=== PATIENT | male | born 1985 | race African-American/Black ===

== ENCOUNTER 2022-07-06 16:44 | Inpatient (IN) | payer OTHER ==
[2022-07-06 18:09] VITALS: BMI 23.0
[2022-07-06] MEDS ORDERED: ACETAMINOPHEN 325 MG TABLET (FP) PO PRN (20:47)
[2022-07-06] MEDS ORDERED: LOPERAMIDE HCL 2 MG CAPSULE PO PRN (20:47)
[2022-07-06] MEDS ORDERED: MAGNESIUM HYDROX 2400MG/30ML ORAL SUSPENSION 30 ML CUP PO PRN (20:47)
[2022-07-06] MEDS ORDERED: IBUPROFEN 400 MG TABLET (FP) PO PRN (20:47)
[2022-07-06] MEDS ORDERED: MAG HYDROX/AL HYDROX/SIMETH 30 ML UNIT-DOSE CUP PO PRN (20:47)
[2022-07-06] MEDS ORDERED: MAGNESIUM CITRATE 300 ML BOTTLE PO PRN (20:47)
[2022-07-06] MEDS ORDERED: P-EPHED 60MG/TRIPROLIDI 2.5MG TABLET PO PRN (20:47)
[2022-07-06] MEDS ORDERED: guaiFENesin 200 MG/10 ML 10 ML UNIT-DOSE CUPS PO PRN (20:47)
[2022-07-06] MEDS: MELATONIN 5 MG TABLETS PO PRN (23:42)
[2022-07-06] MEDS: THIAMINE HCL 100 MG TABLET (FP) PO SCH (23:42)
[2022-07-07] MEDS: NICOTINE 10 MG CARTRIDGE (INHALER) IH PRN (08:38)
[2022-07-07] MEDS ORDERED: methaDONE HCL 10 MG TABLET PO SCH (09:15)
[2022-07-07] MEDS: methaDONE 40 MG, methaDONE 30 MG PO SCH (09:30)
[2022-07-07] MEDS: PRENATAL VITAMINS W/ FOLIC ACID TABLET (FP) PO SCH (09:31)
[2022-07-07 10:13] LABS: URINE APPEARANCE CLEAR; URINE BILIRUBIN NEGATIVE (NEGATIVE); URINE COLOR YELLOW; URINE GLUCOSE (UA) NEGATIVE (NEGATIVE); URINE KETONE NEGATIVE (NEGATIVE); URINE LEUK ESTERASE NEGATIVE (NEGATIVE); URINE NITRITE NEGATIVE (NEGATIVE); URINE PROTEIN NEGATIVE (NEGATIVE); URINE UROBILINOGEN 0.2 mg/dL (0.2-1.0)
[2022-07-07] MEDS: MELATONIN 5 MG TABLETS PO PRN (21:05)
[2022-07-07] MEDS: THIAMINE HCL 100 MG TABLET (FP) PO SCH (21:05)
[2022-07-07] MEDS: diphenhydrAMINE HCL 25 MG CAPSULE (FP) PO SCH (21:06)
[2022-07-08] MEDS: methaDONE 40 MG, methaDONE 30 MG PO SCH (06:04)
[2022-07-08] MEDS: NICOTINE 10 MG CARTRIDGE (INHALER) IH PRN ×4 (06:05→21:14)
[2022-07-08] MEDS: PRENATAL VITAMINS W/ FOLIC ACID TABLET (FP) PO SCH (09:41)
[2022-07-08 12:22] LABS: HEMATOCRIT 44.6 % (35.4-49); HEMOGLOBIN 14.7 GM/dL (11.7-16.9); MCH 30.3 pg (25.7-33.7); MCHC 33.1 g/dl (32.0-35.9); MEAN CELL VOLUME 91.7 fl (80-96); MEAN PLT VOLUME 10.2 fl (7.5-11.1); PLATELET COUNT 266 10^3/uL (134-434); RBC 4.86 M/mm3 (4.00-5.60); RDW 14.1 % (11.9-15.9); WHITE BLOOD COUNT 9.9 K/mm3 (4.0-10.0)
[2022-07-08 12:49] LABS: ALBUMIN 3.9 g/dl (3.4-5.0); BLOOD UREA NITROGEN 8.5 mg/dL (7-18); CALCIUM 9.4 mg/dL (8.5-10.1)
[2022-07-08 12:52] LABS: CREATININE 0.9 mg/dL (0.55-1.3)
[2022-07-08 12:53] LABS: BILIRUBIN,TOTAL 0.6 mg/dL (0.2-1)
[2022-07-08 12:54] LABS: TOT PROT 6.6 g/dl (6.4-8.2)
[2022-07-08] MEDS: diphenhydrAMINE HCL 25 MG CAPSULE (FP) PO SCH (21:14)
[2022-07-08] MEDS: THIAMINE HCL 100 MG TABLET (FP) PO SCH (21:14)
[2022-07-08] MEDS: MELATONIN 5 MG TABLETS PO PRN (21:14)
[2022-07-09] MEDS: methaDONE 40 MG, methaDONE 30 MG PO SCH (06:17)
[2022-07-09] MEDS: PRENATAL VITAMINS W/ FOLIC ACID TABLET (FP) PO SCH (09:38)
[2022-07-09] MEDS: NICOTINE 10 MG CARTRIDGE (INHALER) IH PRN ×3 (09:38→21:39)
[2022-07-09] MEDS: THIAMINE HCL 100 MG TABLET (FP) PO SCH (21:38)
[2022-07-09] MEDS: MELATONIN 5 MG TABLETS PO PRN (21:38)
[2022-07-09] MEDS: diphenhydrAMINE HCL 25 MG CAPSULE (FP) PO SCH (21:39)
[2022-07-10] MEDS: methaDONE 40 MG, methaDONE 30 MG PO SCH (06:17)
[2022-07-10] MEDS: PRENATAL VITAMINS W/ FOLIC ACID TABLET (FP) PO SCH (09:51)
[2022-07-10] MEDS: NICOTINE 10 MG CARTRIDGE (INHALER) IH PRN ×3 (09:52→21:43)
[2022-07-10] MEDS: diphenhydrAMINE HCL 25 MG CAPSULE (FP) PO SCH (21:42)
[2022-07-10] MEDS: THIAMINE HCL 100 MG TABLET (FP) PO SCH (21:42)
[2022-07-10] MEDS: MELATONIN 5 MG TABLETS PO PRN (21:42)
[2022-07-11] MEDS: methaDONE 40 MG, methaDONE 30 MG PO SCH (06:30)
[2022-07-11] MEDS: NICOTINE 10 MG CARTRIDGE (INHALER) IH PRN ×2 (06:30→09:55)
[2022-07-11] MEDS: PRENATAL VITAMINS W/ FOLIC ACID TABLET (FP) PO SCH (09:55)
[2022-07-11] MEDS: MELATONIN 5 MG TABLETS PO PRN (21:07)
[2022-07-11] MEDS: THIAMINE HCL 100 MG TABLET (FP) PO SCH (21:07)
[2022-07-11] MEDS: diphenhydrAMINE HCL 25 MG CAPSULE (FP) PO SCH (21:08)
[2022-07-12] MEDS: methaDONE 40 MG, methaDONE 30 MG PO SCH (06:10)
[2022-07-12] MEDS: NICOTINE 10 MG CARTRIDGE (INHALER) IH PRN (07:29)
[2022-07-12] MEDS: PRENATAL VITAMINS W/ FOLIC ACID TABLET (FP) PO SCH (10:06)
[2022-07-12] MEDS: THIAMINE HCL 100 MG TABLET (FP) PO SCH (21:14)
[2022-07-12] MEDS: MELATONIN 5 MG TABLETS PO PRN (21:14)
[2022-07-12] MEDS: diphenhydrAMINE HCL 25 MG CAPSULE (FP) PO SCH (21:15)
[2022-07-13] MEDS: methaDONE 40 MG, methaDONE 30 MG PO SCH (06:13)
[2022-07-13] MEDS: PRENATAL VITAMINS W/ FOLIC ACID TABLET (FP) PO SCH (09:46)
[2022-07-13] MEDS: NICOTINE 10 MG CARTRIDGE (INHALER) IH PRN ×2 (09:46→15:49)
[2022-07-13] MEDS: MELATONIN 5 MG TABLETS PO PRN (21:18)
[2022-07-13] MEDS: THIAMINE HCL 100 MG TABLET (FP) PO SCH (21:18)
[2022-07-13] MEDS: diphenhydrAMINE HCL 25 MG CAPSULE (FP) PO SCH (21:19)
[2022-07-14] MEDS: methaDONE 40 MG, methaDONE 30 MG PO SCH (06:19)
[2022-07-14] MEDS: NICOTINE 10 MG CARTRIDGE (INHALER) IH PRN ×3 (06:20→18:39)
[2022-07-14] MEDS: PRENATAL VITAMINS W/ FOLIC ACID TABLET (FP) PO SCH (10:00)
[2022-07-14] MEDS: MELATONIN 5 MG TABLETS PO PRN (21:31)
[2022-07-14] MEDS: THIAMINE HCL 100 MG TABLET (FP) PO SCH (21:31)
[2022-07-14] MEDS: diphenhydrAMINE HCL 25 MG CAPSULE (FP) PO SCH (21:31)
[2022-07-15] MEDS: methaDONE 40 MG, methaDONE 30 MG PO SCH (06:06)
[2022-07-15] MEDS: NICOTINE 10 MG CARTRIDGE (INHALER) IH PRN ×3 (06:08→21:37)
[2022-07-15] MEDS: PRENATAL VITAMINS W/ FOLIC ACID TABLET (FP) PO SCH (10:05)
[2022-07-15] MEDS: diphenhydrAMINE HCL 25 MG CAPSULE (FP) PO SCH (21:37)
[2022-07-15] MEDS: THIAMINE HCL 100 MG TABLET (FP) PO SCH (21:37)
[2022-07-15] MEDS: MELATONIN 5 MG TABLETS PO PRN (21:37)
[2022-07-16] MEDS: NICOTINE 10 MG CARTRIDGE (INHALER) IH PRN ×4 (06:18→21:05)
[2022-07-16] MEDS: methaDONE 40 MG, methaDONE 30 MG PO SCH (06:18)
[2022-07-16] MEDS: PRENATAL VITAMINS W/ FOLIC ACID TABLET (FP) PO SCH (09:21)
[2022-07-16] MEDS ORDERED: FLU VACC QS2022-23(6MOS UP)/PF 60 MCG/0.5 ML SYRINGE IM ONE (12:00)
[2022-07-16] MEDS: THIAMINE HCL 100 MG TABLET (FP) PO SCH (21:06)
[2022-07-16] MEDS: MELATONIN 5 MG TABLETS PO PRN (21:06)
[2022-07-16] MEDS: diphenhydrAMINE HCL 25 MG CAPSULE (FP) PO SCH (21:06)
[2022-07-17] MEDS: methaDONE 40 MG, methaDONE 30 MG PO SCH (06:08)
[2022-07-17] MEDS: NICOTINE 10 MG CARTRIDGE (INHALER) IH PRN ×4 (06:09→21:20)
[2022-07-17] MEDS: PRENATAL VITAMINS W/ FOLIC ACID TABLET (FP) PO SCH (10:16)
[2022-07-17] MEDS: diphenhydrAMINE HCL 25 MG CAPSULE (FP) PO SCH (21:19)
[2022-07-17] MEDS: MELATONIN 5 MG TABLETS PO PRN (21:19)
[2022-07-17] MEDS: THIAMINE HCL 100 MG TABLET (FP) PO SCH (21:19)
[2022-07-18] MEDS: methaDONE 40 MG, methaDONE 30 MG PO SCH (06:20)
[2022-07-18] MEDS: NICOTINE 10 MG CARTRIDGE (INHALER) IH PRN ×2 (06:28→14:46)
[2022-07-18] MEDS: PRENATAL VITAMINS W/ FOLIC ACID TABLET (FP) PO SCH (09:48)
[2022-07-18] MEDS: diphenhydrAMINE HCL 25 MG CAPSULE (FP) PO SCH (21:17)
[2022-07-18] MEDS: THIAMINE HCL 100 MG TABLET (FP) PO SCH (21:17)
[2022-07-18] MEDS: MELATONIN 5 MG TABLETS PO PRN (21:17)
[2022-07-19] MEDS: methaDONE 40 MG, methaDONE 30 MG PO SCH (06:18)
[2022-07-19] MEDS: NICOTINE 10 MG CARTRIDGE (INHALER) IH PRN ×2 (06:18→21:28)
[2022-07-19] MEDS: PRENATAL VITAMINS W/ FOLIC ACID TABLET (FP) PO SCH (09:58)
[2022-07-19] MEDS: MELATONIN 5 MG TABLETS PO PRN (21:28)
[2022-07-19] MEDS: diphenhydrAMINE HCL 25 MG CAPSULE (FP) PO SCH (21:28)
[2022-07-19] MEDS: THIAMINE HCL 100 MG TABLET (FP) PO SCH (21:28)
[2022-07-20] MEDS: methaDONE 40 MG, methaDONE 30 MG PO SCH (06:11)
[2022-07-20] MEDS: NICOTINE 10 MG CARTRIDGE (INHALER) IH PRN ×2 (06:19→21:51)
[2022-07-20] MEDS: PRENATAL VITAMINS W/ FOLIC ACID TABLET (FP) PO SCH (10:09)
[2022-07-20] MEDS: MELATONIN 5 MG TABLETS PO PRN (21:51)
[2022-07-20] MEDS: diphenhydrAMINE HCL 25 MG CAPSULE (FP) PO SCH (21:51)
[2022-07-20] MEDS: THIAMINE HCL 100 MG TABLET (FP) PO SCH (21:51)
[2022-07-21] MEDS: methaDONE 40 MG, methaDONE 30 MG PO SCH (06:27)
[2022-07-21] MEDS: NICOTINE 10 MG CARTRIDGE (INHALER) IH PRN ×3 (06:27→18:57)
[2022-07-21] MEDS: PRENATAL VITAMINS W/ FOLIC ACID TABLET (FP) PO SCH (09:40)
[2022-07-21] MEDS: THIAMINE HCL 100 MG TABLET (FP) PO SCH (21:21)
[2022-07-21] MEDS: MELATONIN 5 MG TABLETS PO PRN (21:21)
[2022-07-21] MEDS: diphenhydrAMINE HCL 25 MG CAPSULE (FP) PO SCH (21:21)
[2022-07-22] MEDS: methaDONE 40 MG, methaDONE 30 MG PO SCH (06:25)
[2022-07-22] MEDS: NICOTINE 10 MG CARTRIDGE (INHALER) IH PRN ×2 (06:26→19:54)
[2022-07-22] MEDS: PRENATAL VITAMINS W/ FOLIC ACID TABLET (FP) PO SCH (09:59)
[2022-07-22] MEDS: diphenhydrAMINE HCL 25 MG CAPSULE (FP) PO SCH (21:17)
[2022-07-22] MEDS: MELATONIN 5 MG TABLETS PO PRN (21:17)
[2022-07-22] MEDS: THIAMINE HCL 100 MG TABLET (FP) PO SCH (21:17)
[2022-07-23 06:44] VITALS: RESP 16; TEMP 98.2
[2022-07-23] MEDS: NICOTINE 10 MG CARTRIDGE (INHALER) IH PRN (06:53)
[2022-07-23] MEDS: methaDONE 40 MG, methaDONE 30 MG PO SCH (06:54)
[2022-07-23 09:25] VITALS: BP 121/82; PULSE 82
== END 2022-07-23 09:30 | disposition home or self-care (01) | DRG 772 ==
LOC: YASAS 16:44 → Y3E 22:30
PROVIDERS: ADMIT Allergy & Immunology; ATTEND Psychiatry & Neurology Pain Medicine
PROC: HZ42ZZZ Group Counseling for Substance Abuse Treatment, Cognitive-Behavioral (ICD-10-PCS; principal; 2022-07-06)
DX: F11.20 Opioid dependence, uncomplicated (principal); F10.20 Alcohol dependence, uncomplicated; F12.20 Cannabis dependence, uncomplicated; F17.210 Nicotine dependence, cigarettes, uncomplicated
CPT/HCPCS: 36415; 80053; 81003; 85027; 86780; C9803-CS; G0008; Q2036; U0003; U0005